=== PATIENT | female | born 1950 | race Caucasian/White ===

== ENCOUNTER 2017-07-21 18:02 | Emergency (ER) | payer OTHER ==
[~2017-07-21] VITALS: Ht 172.7 cm; Wt 90.7 kg
--- NOTE | 2017-07-21 18:02 | NUR ---
PT BIBA TO BED 1.
[2017-07-21 18:10] VITALS: BP 120/73
--- NOTE | 2017-07-21 18:10 | NUR ---
66F BIBA FROM [facility] C/O SYNCOPAL EPISODE PRIOR TO ARRIVAL TO ER TODAY; PER FAMILY, PT "PASSED OUT FOR 30 SECONDS"; PT STATES " I WAS IN LINE PAYING FOR A HAT I WAS GOING TO BUY. 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 WILL CONTINUE TO MONITOR.
[2017-07-21] MEDS ORDERED: KEP500 PO (18:14)
--- NOTE | 2017-07-21 18:34 | NUR ---
ER MD DR. REYNA EVALUATING PT AT BEDSIDE.
[2017-07-21] MEDS ORDERED: KETOROLAC 30 MG/ML VIAL IVP ONE (18:40)
--- NOTE | 2017-07-21 19:02 | NUR ---
IV removed to right hand 20g established in field, catheter intact and site benign. Applied folded 4x4 gauze and tape to stop bleeding. Pt tolerated procedure well.
--- NOTE | 2017-07-21 19:03 | NUR ---
Pt report given to JOSIAH Renteria. Transfer of care at this time.
[2017-07-21] MEDS: KETOROLAC 60 MG/2 ML VIAL IM ONE (19:10)
[2017-07-21 19:53] VITALS: BP 164/85
--- NOTE | 2017-07-21 19:54 | NUR ---
Patient discharged with v/s stable. Written and verbal after care instructions given and explained. Patient verbalized understanding. Ambulatory with steady gait. All questions addressed prior to discharge. Advised to follow up with PMD.
== END 2017-07-21 19:53 | disposition home or self-care (01) ==
LOC: MED 18:02
DX: R55 Syncope and collapse (principal); R51 Headache; Z79.899 Other long term (current) drug therapy; Z90.710 Acquired absence of both cervix and uterus
CPT/HCPCS: 81002; 81025; 93005; 96372; 99283; J1885